=== PATIENT | female | born 1975 | race Caucasian/White ===

== ENCOUNTER 2019-09-29 11:36 | Emergency (ER) | payer OTHER, SELFPAY ==
[2019-09-29 11:45] VITALS: BP 162/93; PULSE 100; RESP 24; TEMP 36.4; O2SAT 100
--- NOTE | 2019-09-29 11:54 | ED.GENADULT ---
HPI - General Adult General Chief complaint: Extremity Injury, Upper Stated complaint: lt elbow/lt shoulder pain Time Seen by Provider: 09/29/19 11:55 Source: patient and RN notes reviewed Mode of arrival: ambulatory Limitations: no limitations History of Present Illness HPI narrative: 43-year-old female resents with concern for left elbow pain that radiates to her left shoulder. Reports she works in [email or web address] and recently returned to work after being off for an extended period. Reports repetitive arm twisting motions. Reports shortly after she returned to work the pain in her elbow started. Reports she has been taking 800 mg ibuprofen once daily. Denies using ice or heat. Denies any decreased strength or decreased sensation in the arm. Denies chest pain, shortness of breath, nausea, diaphoresis. Denies any direct injury or trauma. Denies spontaneous pain, reports pain elicited with movements of the arm and shoulder. MD complaint: Elbow pain Related Data Allergies Allergy/AdvReac Type Severity Reaction Status Date / Time SULFAMETHOXAZOLE (Generic Allergy Y Uncoded 09/15/02 13:34 Allergy) Review of Systems Review of Systems: Narrative: CONSTITUTIONAL: Denies malaise, chills, sweats, or fever. CARDIOVASCULAR: Denies chest pain, palpitations, or edema. RESPIRATORY: Denies cough or dyspnea. GASTROINTESTINAL: Denies abdominal pain, nausea, vomiting SKIN: Denies bruising, redness, diaphoresis MUSCULOSKELETAL: Reports left elbow pain that radiates to the left axilla NEUROLOGIC: Denies numbness, weakness. All systems reviewed & are unremarkable except as noted in HPI and below PMFSH Social History Social History Gender identity (if verbalized by the patient): Female Comments At time of signature, agree with nursing past medical, surgical, social and family history. There is no relevant family history pertinent to the presenting complaint Exam Narrative: Exam Narrative: GENERAL: Well-appearing, well-nourished, and in no acute distress. HEAD: Normocephalic EYES: PERRLA, conjunctivae clear NECK: Supple. CHEST: Speaks in full sentences. No respiratory distress. HEART: Regular rate and rhythm. Normal and equal peripheral pulses. EXTREMITIES: Left arm, elbow, shoulder has normal strength and sensation, no edema, normal range of motion. 5/5 strength with elbow flexion and extension, shoulder abduction abduction. Normal sensation with sensitivity to light touch and pain. No open wounds, no skin tenting, no devitalized tissue or atrophy, no trophic changes, no ecchymosis, no obvious deformity, alignment normal, no point tenderness, nearby joints and structures intact. Distal pulses palpable and equal bilaterally, skin warm, dry, pink. Capillary refill less than 3 seconds. SKIN: Warm, dry, no rash. NEURO: Alert and oriented x3. PSYCH: Normal mood and affect Course Course Emergency Course: Patient is aware of diagnosis, understands and agrees to treatment plan. Anticipatory guidance given. Patient agrees to follow-up as directed and is aware of reasons to seek care at the emergency department. Portions of this record may have been created with voice recognition software Vital Signs Vital signs: Vital Signs Temperature 97.5 F L 09/29/19 11:45 Pulse Rate 100 09/29/19 11:45 Respiratory Rate 24 H 09/29/19 11:45 Blood Pressure 162/93 H 09/29/19 11:45 Pulse Oximetry 100 09/29/19 11:45 Temperature 97.5 F L 09/29/19 11:45 Pulse Rate 100 09/29/19 11:45 Respiratory Rate 24 H 09/29/19 11:45 Blood Pressure 162/93 H 09/29/19 11:45 Pulse Oximetry 100 09/29/19 11:45 Reviewed. Patient has been instructed to follow up with her primary care provider within the next week regarding her elevated blood pressure today. Medical Decision Making MDM Narrative Medical decision making narrative: Patients pain is consistent with musculoskeletal etiology. No signs of neurological or vascular compromise on exam. Co
== END 2019-09-29 12:12 | disposition home or self-care (01) ==
PROVIDERS: Emergency Provider Nurse Practitioner; PCP Internal Medicine Gastroenterology
DX: M77.12 Lateral epicondylitis, left elbow (principal); M25.512 Pain in left shoulder
CPT/HCPCS: 99213; G0463

== ENCOUNTER 2020-05-15 14:04 | Emergency (ER) | payer OTHER, SELFPAY ==
--- NOTE | 2020-05-15 14:16 | ED.FEMALEGU ---
HPI - Female Genitourinary General Chief complaint: Urogenital-Female Stated complaint: POS UTI Source: patient Mode of arrival: ambulatory Limitations: no limitations History of Present Illness HPI Narrative: Patient is a 44-year-old female who presents complaining of dysuria, frequency, urgency and lower back pain x5 days. Patient denies hematuria. She reports a history of UTI. She denies taking [id number] medications for symptom relief at this time. MD elicited complaint: UTI Related Data Allergies Allergy/AdvReac Type Severity Reaction Status Date / Time SULFAMETHOXAZOLE (Generic Allergy Y Uncoded 05/15/20 14:31 Allergy) Review of Systems Review of Systems: Narrative: CONSTITUTIONAL: Denies fever, chills, or sweats. EYES: Denies visual changes, redness, or discharge. ENT: Denies rhinorrhea, congestion, sore throat, or otalgia. CARDIOVASCULAR: Denies chest pain, palpitations, or edema. RESPIRATORY: Denies cough or dyspnea. GASTROINTESTINAL: Denies abdominal pain, nausea, vomiting, or diarrhea. GENITOURINARY: Reports dysuria and frequency SKIN: Denies rash or itching. MUSCULOSKELETAL: Reports lower back pain NEUROLOGIC: Denies headache, numbness, dizziness, or weakness. PSYCHIATRIC: Denies anxiety or depression. [facility] Past Medical History Medical History (Updated 05/15/20 @ 14:36 by MARKELL Shahid) Fractures History of dental problems Ovarian cyst Surgical History Surgical History (Updated 05/15/20 @ 14:17 by MARKELL Shahid) H/O tubal ligation H/O: Family History Family History (Updated 05/15/20 @ 14:18 by MARKELL Shahid) Other Heart disease Social History Social History (Updated 05/15/20 @ 14:18 by MARKELL Shahid) Smoking status: Current every day smoker Alcohol intake: current Gender identity (if verbalized by the patient): Female Comments At the time of signature, I have reviewed and agree with nursing past medical, surgical, social, and family history unless otherwise noted. Please see nursing chart for further information. There is no relevant family history pertinent to the presenting complaint. Exam Narrative: Exam Narrative: GENERAL: Well-appearing, well-nourished, and in no acute distress. HEAD: Normocephalic, atraumatic. EYES: No redness or drainage. Conjunctiva are normal. ENT: Mucous membranes pink and moist. CHEST: No respiratory distress. HEART: Regular rate and rhythm. GI: Soft, nontender without rebound, or guarding. EXTREMITIES: Normal range of motion. SKIN: Warm, dry, no rash. NEURO: No focal deficits. Alert and oriented x3. Gait steady. PSYCH: Normal affect. No signs of depression or anxiety. Course Vital Signs Vital signs: Vital Signs Temperature 36.9 C 05/15/20 14:20 Pulse Rate 93 05/15/20 14:20 Respiratory Rate 16 05/15/20 14:20 Blood Pressure 158/91 H 05/15/20 14:20 Pulse Oximetry 100 05/15/20 14:20 Temperature 36.9 C 05/15/20 14:20 Pulse Rate 93 05/15/20 14:20 Respiratory Rate 16 05/15/20 14:20 Blood Pressure 158/91 H 05/15/20 14:20 Pulse Oximetry 100 05/15/20 14:20 Reviewed-patient is informed that they may have pre-hypertension or hypertension based on a blood pressure reading. I recommend the patient call the primary care provider listed on their discharge instructions or a physician of their choice this week to arrange follow-up for further evaluation of possible pre-hypertension or hypertension. MDM - Female Genitourinary MDM Narrative Medical decision making narrative: Patient's urine is positive for hematuria and leukocytes. Patient most likely has UTI. Patient to be started on antibiotics at this time. Discussed with patient, who agrees with plan of care. Patient is stable for discharge home without patient follow-up as needed. Differential Diagnosis Differential diagnosis: Likely urinary tract infection Lab Data Attestation: I reviewed the patie
[2020-05-15 14:20] VITALS: BP 158/91; PULSE 93; RESP 16; TEMP 36.9; O2SAT 100
== END 2020-05-15 14:44 | disposition home or self-care (01) ==
PROVIDERS: Emergency Provider Nurse Practitioner; PCP Internal Medicine Gastroenterology
DX: N39.0 Urinary tract infection, site not specified (principal); F17.200 Nicotine dependence, unspecified, uncomplicated
CPT/HCPCS: 81003; 87077; 87086; 87088; 87186; 99213; G0463